=== PATIENT | female | born 1970 | race Caucasian/White ===

== ENCOUNTER 2017-09-19 09:51 | Day surgery (SDC) | payer BC ==
[~2017-09-19] VITALS: Ht 162.6 cm; Wt 62.6 kg
[~2017-09-19 09:51] MED LIST: ALBUTEROL SULF8.5 GM IH; MS CONTIN,ORAMO15 M1 PO; OXYCODONE5 MG; OXYCONTIN10 MG; OXYCONTIN20 MG PO; PERCOCET 10/1 TABLET PO; PHENERGAN12.5 M1; PREDNISONE20 MG PO; PREVACID30 MG PO; PROAIR HFA8.5 GM IH; PROMETHAZINE HC25 M1 PO; VALIUM5 MG PO; ZANTAC300 MG PO
[2017-09-19 10:51] VITALS: BP 131/85
[2017-09-19 15:15] VITALS: BP 112/57
[2017-09-19 16:20] VITALS: BP 112/59
== END 2017-09-19 16:30 | disposition home or self-care (01) ==
LOC: SDC 09:51
PROC: 0LC Tendons, Extirpation (ICD-10-PCS; principal; 2017-09-19)
DX: M77.11 Lateral epicondylitis, right elbow (principal); M77.9 Enthesopathy, unspecified; I10 Essential (primary) hypertension; F17.200 Nicotine dependence, unspecified, uncomplicated; Z79.82 Long term (current) use of aspirin
CPT/HCPCS: 88304; J0690; J1170; J2250; J2405; J2704; J3010

== ENCOUNTER 2018-01-16 11:14 | Day surgery (SDC) | payer BC ==
[~2018-01-16] VITALS: Ht 163.8 cm; Wt 61.6 kg
[2018-01-16] MEDS ORDERED: VITAMIN C1000 MG PO (11:50)
[2018-01-16] MEDS ORDERED: VITAMIN B-1250 MC3 PO (11:50)
[2018-01-16 11:53] VITALS: BP 114/71
[2018-01-16 16:00] VITALS: BP 152/72
[2018-01-16 17:09] VITALS: BP 138/77
== END 2018-01-16 17:20 | disposition home or self-care (01) ==
LOC: SDC 11:14
PROC: 01N40ZZ Release Ulnar Nerve, Open Approach (ICD-10-PCS; principal; 2018-01-16)
DX: M77.11 Lateral epicondylitis, right elbow (principal); M25.521 Pain in right elbow; G56.21 Lesion of ulnar nerve, right upper limb; Z90.5 Acquired absence of kidney; K21.9 Gastro-esophageal reflux disease without esophagitis; Z87.11 Personal history of peptic ulcer disease; Z90.49 Acquired absence of other specified parts of digestive tract; Z88.0 Allergy status to penicillin
CPT/HCPCS: J0131; J0330; J0690; J1100; J1170; J1885; J2250; J2310; J2405; J3010; Q0175